=== PATIENT | female | born 1950 | race Asian ===

== ENCOUNTER 2020-12-07 22:19 | Emergency (ER) | payer OTHER, MEDICARE, SELFPAY ==
[2020-12-07 22:21] VITALS: BP 173/81; PULSE 110; RESP 17; TEMP 36.3; O2SAT 99
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
[2020-12-07 22:46] LABS: Abs Immature Grans 0.07 10^3/uL (0.0-0.06); Absolute Basophil Count 0.05 10^3/uL (0.0-0.2); Absolute Eosinophil Count 0.19 10^3/uL (0.0-0.7); Absolute Lymphocyte Count 3.31 10^3/uL (1.2-3.4); Absolute Monocyte Count 0.78 10^3/uL (0.1-0.8); Absolute Neutrophil Count 7.45 10^3/uL (1.2-6.7); Basophils % 0.4; Eosinophils % 1.6; HCT 40.7 % (36.0-46.0); HGB 14.2 g/dL (11.2-15.7); Immature Grans % 0.6; Lymphocytes % 27.9; MCH 30.5 pg (27.0-33.0); MCHC 34.9 % (32.0-36.0); MCV 87.3 fL (80-95); MPV 9.3 fL (8.0-11.0); Monocytes % 6.6; Neutrophils % 62.9; Nucleated RBC 0 %; Platelet Count 246 10^3/uL (130-400); RBC 4.66 10^6/uL (3.93-5.22); RDW 13.2 % (11.7-14.6); RDW-SD 41.7 fL; WBC 11.85 10^3/uL (4.4-10.8)
[2020-12-07 23:04] LABS: ALT 76 U/L (14-59); AST 70 U/L (15-37); Albumin 4.1 g/dL (3.4-5.0); Alkaline Phosphatase 127 U/L (46-116); Anion Gap 13.4 mmol/L (3-11); BUN 17 mg/dL (7-18); Bilirubin, Total 0.7 mg/dL (0.2-1.0); CO2 25.6 mmol/L (21.0-32.0); CREATININE 0.9 mg/dL (0.55-1.02); Calcium 9.5 mg/dL (8.5-10.1); Chloride 104 mmol/L (98-107); Glucose 140 mg/dL (74-106); Lipase 303 U/L (73-393); Potassium 3.6 mmol/L (3.5-5.1); Sodium 143 mmol/L (136-145); Total Protein 7.8 g/dL (6.4-8.2)
[2020-12-07 23:06] LABS: ETHANOL BLOOD < 3.0 mg/dL (<3)
[2020-12-07 23:12] LABS: Bilirubin Negative (Negative); Blood Trace-intact (Negative); Clarity Clear (Clear); Glucose Negative (Negative); Ketones Negative (Negative); Leukocyte Esterase Negative (Negative); Nitrite Negative (Negative); Specific Gravity 1.025 (1.005-1.025); Urobilinogen 0.2 EU/dL (Up TO 0.2)
[2020-12-07 23:16] LABS: *AMPHETAMINES SCREEN URINE Negative (Negative); *BARBITURATES SCREEN URINE Negative (Negative); *BENZODIAZEPINES SCREEN URINE Negative (Negative); Cannabinoids THC Negative (Negative); Cocaine Screen,Urine Negative (Negative); METHADONE URINE SCREEN Negative (Negative); OPIATES URINE SCREEN Negative (Negative)
[2020-12-07 23:17] LABS: Tricyclic Antidepressants Negative (Negative)
[2020-12-07 23:29] LABS: Epithelial Cells Rare HPF (Negative); RBC 0-2 HPF (0-2)
[2020-12-07 23:30] LABS: Bacteria Rare HPF (Negative); C & S Indicated? No; Casts Negative LPF (Negative); Crystals Negative HPF (Negative); Mucus Negative (Negative)
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
[2020-12-08] VITALS (7 sets, daily range): BP systolic 172–175; BP diastolic 75–82; PULSE 95–101; RESP 15–21; O2SAT 96–99
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
[2020-12-08] MEDS: Lactated Ringers 1,000 ML 1000 ML IV (00:05)
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
[2020-12-08] MEDS: Ketorolac 15 MG/ML VIAL (00:40)
--- NOTE | 2020-12-09 06:25 | NUR.NOTE ---
Nursing Note: Referral faxed to surgery for follow up regarding ED Visit.
== END 2020-12-08 01:40 | disposition home or self-care (01) ==
LOC: ER 12-08 02:35
PROVIDERS: Emergency Provider Emergency Medicine
DX: S06.0X0A Concussion without loss of consciousness, initial encounter (principal); S01.81XA Laceration without foreign body of other part of head, initial encounter; M54.2 Cervicalgia; V53.5XXA Driver of pick-up truck or van injured in collision with car, pick-up truck or van in traffic accident, initial encounter
CPT/HCPCS: 12011; 36415; 71250; 80053; 80307; 83690; 90471; 96361; 96374; 99284; 70450; 72125; 72128; 72131; 74176; 80320; 81003; 81015; 85025; J1885

== ENCOUNTER → 2020-12-12 10:59 | Outpatient (BNVA) | payer MEDICARE, SELFPAY | PROVIDERS: Visit Provider Physical Therapy Assistant | DX: R69 Illness, unspecified (principal) ==

== ENCOUNTER 2025-01-13 20:23 | Emergency (ER) | payer MEDICARE, SELFPAY ==
--- NOTE | 2025-01-13 20:15 | RT.EKG_ITS ---
APPROVED REPORT Exam: Resting ECG Reason for Exam: dizziness Patient Location: E HR:82 bpm ECG Measurements Heart Rate 82 AXIS MI 183 P 29 QRSd 77 QRS 42 QT 347 T 53 QTc 406 Conclusion Sinus rhythm, rate 82 No interval abnormalities Borderline ST elevation not meeting SETMI criteria inferolateral leads, no priors available for comparison
[2025-01-13 20:24] VITALS: BP 111/63; PULSE 84; RESP 16; TEMP 36.6; O2SAT 98
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
--- NOTE | 2025-01-13 20:55 | DI.RAD_ITS ---
Exam(s) XR CHEST 2V PA LATERAL EXAM: XR CHEST 2V PA LATERAL CLINICAL HISTORY: SOB, epigastric pain TECHNIQUE: 2D digital imaging was performed. Two views. COMPARISON: No exams were available for comparison FINDINGS: HEART: Normal size. Aorta: Tortuous. PULMONARY VASCULATURE: Normal. MEDIASTINUM: Unremarkable. LUNGS: Clear. PLEURAL SPACE: No pleural effusion or pneumothorax. BONE:Unremarkable for age. SOFT TISSUES: Unremarkable. IMPRESSION: No acute abnormality. The preliminary [facility] report was reviewed. DATA REPOSITORY: RADIATION DOSE DELIVERED:
[2025-01-13 20:58] LABS: Abs Immature Grans 0.14 10^3/uL (0.0-0.06); HCT 34.3 % (36.0-46.0); HGB 11.7 g/dL (11.2-15.7); Immature Grans % 1.3 %; MCH 32.3 pg (27.0-33.0); MCHC 34.1 % (32.0-36.0); MCV 95 fL (80-95); MPV 9.1 fL (8.0-11.0); Platelet Count 248 10^3/uL (130-400); RBC 3.62 10^6/uL (3.93-5.22); RDW 12.7 % (11.7-14.6); RDW-SD 43.8 fL; WBC 10.72 10^3/uL (4.4-10.8)
[2025-01-13] MEDS: Lactated Ringers 1,000 ML 1000 ML IV (21:01)
[2025-01-13] MEDS: Ondansetron 4 MG/2 ML VIAL IVP (21:01)
[2025-01-13 21:08] LABS: Lipase 210 U/L (<78)
--- NOTE | 2025-01-13 21:15 | DI.CT_ITS ---
Exam(s) CT ABDOMEN PELVIS WO EXAM: CT ABDOMEN PELVIS WO CLINICAL HISTORY: epigastric pain, +lipase. TECHNIQUE: Imaging Protocol: Axial computed tomography images with coronal and sagittal reformatted images were created and reviewed. Oral: / no COMPARISON: CT CT CHEST/ABD/PEL WO from 12/07/2020 FINDINGS: Lung Bases: No acute findings. Small hiatal hernia. Mild atelectasis. Liver: Normal density. Exophytic lesion from the left lobe is unchanged from 2020, consistent with a benign lesion. No follow-up recommended. No suspicious mass. Gallbladder and biliary tract: No radiodense calculus or biliary dilation. Pancreas: Normal density. No abnormal calcifications or inflammatory process. Spleen: Normal. Kidneys: Normal size, contour and axis. No radiodense stones. No obstructive uropathy. No suspicious masses seen. Adrenal glands: No masses seen. Lymph nodes: Within normal limits. Vasculature: Abdominal aorta non-dilated. Soft tissues: Bilateral breast implants. Bladder: No wall thickening. No mass or calculi. Bowel: No obstruction or bowel wall thickening. Appendix normal. Moderate quantity of stool. Peritoneal cavity: No ascites. No focal collection. No mesenteric inflammatory response. Reproductive organs: Hysterectomy Bones: Bilateral L5 spondylolysis and mild L5-S1 spondylolisthesis, unchanged. Degenerative disc changes at L5-S1. IMPRESSION: No acute abnormality in the abdomen or pelvis. The preliminary [facility] report was reviewed. RADIATION DOSE DELIVERED: Total DLP DATA REPOSITORY: All CT scans at this facility are submitted to the National Radiology Data Registry (NRDR) Dose Index Registry (DIR) with the [employer] (A[employer]). RADIATION OPTIMIZATION: All CT scans at this facility use at least one of these dose optimization techniques: automated exposure control; mA and/or kV adjustment per patient size (includes targeted exams where dose is matched to clinical indication); or iterative reconstruction.
[2025-01-13 21:16] LABS: ALT 19 U/L (14-59); AST 9 U/L (15-37); Albumin 3.4 g/dL (3.4-5.0); Alkaline Phosphatase 79 U/L (46-116); Anion Gap 6.5 mmol/L (3-11); BUN 45 mg/dL (7-18); Bilirubin, Total 0.4 mg/dL (0.2-1.0); CO2 26.5 mmol/L (21.0-32.0); Calcium 10.0 mg/dL (8.5-10.1); Chloride 100 mmol/L (98-107); Estimated GFR 24.27 (mL/min/1.73m2); Glucose 113 mg/dL (74-106); Magnesium 1.9 mg/dL (1.8-2.4); Potassium 5.0 mmol/L (3.5-5.1); Sodium 133 mmol/L (136-145); Total Protein 6.4 g/dL (6.4-8.2); Troponin I 5 ng/L (<or=51)
[2025-01-13 22:18] VITALS: BP 104/58; BP 125/61; BP 97/55; PULSE 69; PULSE 74; PULSE 84
[2025-01-13] MEDS: Lactated Ringers 500 ML IV (22:34)
[2025-01-13 22:35] LABS: Troponin I 6 ng/L (<or=51)
[2025-01-13 23:01] LABS: Glucose Negative (Negative)
--- NOTE | 2025-01-13 23:06 | DI.[facility]_ITS ---
PROCEDURE INFORMATION: Exam: CT Abdomen And Pelvis Without Contrast Exam date and time: 01/13/2025 9:25 PM Age: 74 years old Clinical indication: Other: Epigastric pain, +lipase TECHNIQUE: Imaging protocol: Computed tomography of the abdomen and pelvis without contrast. COMPARISON: CT CHEST/ABD/PEL WO 12/07/2020 11:20 PM FINDINGS: Lungs: Linear bibasilar opacities most consistent with subsegmental atelectasis. Diaphragm: There is a small hiatal hernia. Liver: The liver is unremarkable. 3 cm indeterminate low attenuating lesion adjacent to the left hepatic lobe, this could represent a exophytic liver lesion. Gallbladder and biliary ducts: No gallstones. Nondistended. No wall thickening. Pancreas: The pancreas is unremarkable. Spleen: No splenomegaly. No lesions. Adrenal glands: The adrenal glands are unremarkable. Kidneys and ureters: The kidneys are normal. Stomach and bowel: Moderate stool throughout the colon and rectum. Appendix: Normal appendix. Intraperitoneal space: Unremarkable. No free air. No significant fluid collection. Vasculature: There is mild diffuse atherosclerotic disease of the abdominal aorta. Lymph nodes: Unremarkable. No enlarged lymph nodes. Urinary bladder: No focal wall thickening of the urinary bladder. Reproductive: There has been a prior hysterectomy. Bones/joints: The lumbar spine demonstrates mild degenerative changes at multiple levels. No acute osseous abnormality. Soft tissues: There are bilateral intact breast implants. IMPRESSION: 3 cm indeterminate low attenuating lesion adjacent to the left hepatic lobe, this could represent a exophytic liver lesion. Recommend three-phase CT with liver protocol or MRI on a nonemergent basis if clinically warranted. No acute findings. Dictated and Authenticated by: Mildred Blandon MD. Orderin [facility] Prim[facility] Davidson MD
[2025-01-13 23:07] LABS: C & S Indicated? No; RBC Negative HPF (0-2); WBC 0-2 HPF (0-5)
--- NOTE | 2025-01-13 23:07 | DI.[facility]_ITS ---
PROCEDURE INFORMATION: Exam: XR Chest Exam date and time: 01/13/2025 9:42 PM Age: 74 years old Clinical indication: Other: SOB, epigastric pain TECHNIQUE: Imaging protocol: Radiologic exam of the chest. Views: 2 views. COMPARISON: CT CHEST/ABD/PEL WO 12/07/2020 11:20 PM FINDINGS: Lungs: Unremarkable. No consolidation. Pleural spaces: Unremarkable. No pleural effusion. No pneumothorax. Heart/Mediastinum: Unremarkable. No cardiomegaly. Bones/joints: Unremarkable. IMPRESSION: No acute findings. Dictated and Authenticated by: Mildred Blandon MD. Orderin [facility] Davidson MD
[2025-01-13 23:26] VITALS: BP 112/64; PULSE 72; RESP 18; TEMP 36.8; O2SAT 97
== END 2025-01-13 23:27 | disposition home or self-care (01) ==
PROVIDERS: Emergency Provider Emergency Medicine
DX: E86.0 Dehydration (principal); N18.9 Chronic kidney disease, unspecified; K85.90 Acute pancreatitis without necrosis or infection, unspecified; R42 Dizziness and giddiness
CPT/HCPCS: 80053; 83690; 93005; 96361; 96374; 99285; 71046; 74176; 81003; 81015; 83735; 84484; 85025; 93010; 99284; J2405

== ENCOUNTER 2025-01-22 09:37 | Emergency (ER) | payer MEDICARE, SELFPAY ==
[2025-01-22] VITALS (19 sets, daily range): BP systolic 119–180; BP diastolic 70–87; PULSE 71–84; RESP 11–19; TEMP 36.7–36.8; O2SAT 96–100
[2025-01-22 10:16] LABS: Glucose Negative (Negative)
--- NOTE | 2025-01-22 10:30 | DI.RAD_ITS ---
Exam(s) XR CHEST 2V PA LATERAL EXAM: XR CHEST 2V PA LATERAL CLINICAL HISTORY: Chest pain TECHNIQUE: 2D digital imaging was performed of the chest. Two images were obtained. PA and lateral views were obtained. COMPARISON: CR,XR XR CHEST 2V PA LATERAL from 01/13/2025 FINDINGS: MEDIASTINUM: Normal. HEART: Normal. PULMONARY VASCULATURE: Normal. LUNGS: Clear. PLEURAL SPACE: No pleural effusion or pneumothorax. BONE:Within normal limits for the patient's age. OTHER FINDINGS:Normal. IMPRESSION: No acute pulmonary findings. DATA REPOSITORY: RADIATION DOSE DELIVERED:
--- NOTE | 2025-01-22 10:30 | RT.EKG_ITS ---
APPROVED REPORT Exam: Resting ECG Reason for Exam: Chest pain Patient Location: E HR:78 bpm ECG Measurements Heart Rate 78 AXIS DE 215 P 39 QRSd 79 QRS 72 QT 382 T 34 QTc 435 Conclusion Sinus rhythm...normal P axis, V-rate 60- 99 Borderline prolonged DE interval...DE >212, V-rate 50- 90 No Occlusion GA
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
[2025-01-22 11:29] LABS: Abs Immature Grans 0.01 10^3/uL (0.0-0.06); HCT 30.2 % (36.0-46.0); HGB 10.4 g/dL (11.2-15.7); Immature Grans % 0.1 %; MCH 33.2 pg (27.0-33.0); MCHC 34.4 % (32.0-36.0); MCV 97 fL (80-95); MPV 9.3 fL (8.0-11.0); Platelet Count 173 10^3/uL (130-400); RBC 3.13 10^6/uL (3.93-5.22); RDW 12.5 % (11.7-14.6); RDW-SD 44.1 fL; WBC 7.46 10^3/uL (4.4-10.8)
[2025-01-22 12:12] LABS: D-Dimer 1309 ng/mlFEU (<500)
[2025-01-22 12:32] LABS: ALT 29 U/L (14-59); AST 21 U/L (15-37); Albumin 3.4 g/dL (3.4-5.0); Alkaline Phosphatase 58 U/L (46-116); Anion Gap 7.5 mmol/L (3-11); BUN 19 mg/dL (7-18); Bilirubin, Total 0.4 mg/dL (0.2-1.0); CO2 27.5 mmol/L (21.0-32.0); Calcium 8.5 mg/dL (8.5-10.1); Chloride 102 mmol/L (98-107); Estimated GFR 39.23 (mL/min/1.73m2); Glucose 100 mg/dL (74-106); Lipase 132 U/L (<78); Magnesium 2.7 mg/dL (1.8-2.4); Potassium 4.6 mmol/L (3.5-5.1); Sodium 137 mmol/L (136-145); Total Protein 6.7 g/dL (6.4-8.2); Troponin I 7 ng/L (<or=51)
[2025-01-22] MEDS: Dexamethasone 4 MG/ML VIAL 8 MG IVP (13:23)
[2025-01-22] MEDS: Normal Saline 500 ML IV (13:23)
--- NOTE | 2025-01-22 13:30 | DI.CT_ITS ---
Exam(s) CT CHEST PE CTA EXAM: CT CHEST PE CTA CLINICAL HISTORY: SOB pleuritic right flank pain. TECHNIQUE: Imaging Protocol: Axial CT angiography was performed with multi- slice acquisition and multi-planar and/or 3D reconstructions. Lung Computer Aided Detection (CAD) was utilized. CONTRAST MATERIAL: Intravenous: Omnipaque 350 contrast volume:60 mL COMPARISON: CT CT THORACIC LUMBAR SPINE WO from 12/07/[address] CHEST/ABD/PEL WO from 12/07/2020 CR XR CHEST 2V PA LATERAL from 01/22/2025 FINDINGS: Tracheobronchial tree: Patent where visualized. No bronchiectasis. Pulmonary parenchyma: No consolidation or dominant measurable mass. No architectural distortion. Atelectasis is seen in the lung bases. Pulmonary Arteries: No evidence of filling defect to suggest pulmonary emboli. Mediastinum and Hailma: No dominant adenopathy or fluid collection. The esophagus is unremarkable. Visualized thyroid gland: Unremarkable. Pleura: No effusion or pneumothorax. Heart: The heart is not dilated. Two vessel coronary artery calcification is present. No pericardial effusion. Aorta: Thoracic aorta non-dilated. Atherosclerotic calcification is present. Upper abdomen: Unremarkable. Soft tissues: There are bilateral breast implants. Bones: Within normal limits for the patient's age.There is a stable bone island in the T8 vertebral body. IMPRESSION: 1. There is no evidence of a pulmonary embolism or thoracic aortic aneurysm. 2. There is no acute pulmonary process. RADIATION DOSE DELIVERED: 78.57mGy.cm Total DLP DATA REPOSITORY: All CT scans at this facility are submitted to the National Radiology Data Registry (NRDR) Dose Index Registry (DIR) with the [employer] ([employer]). RADIATION OPTIMIZATION: All CT scans at this facility use at least one of these dose optimization techniques: automated exposure control; mA and/or kV adjustment per patient size (includes targeted exams where dose is matched to clinical indication); or iterative reconstruction.
[2025-01-22 14:08] LABS: Troponin I 6 ng/L (<or=51)
[2025-01-22] MEDS: Normal Saline - Diluent 50 ML VIAL IJ (14:34)
[2025-01-22] MEDS: Omnipaque 350 MG/ML 100 ML BTL IJ (14:34)
[2025-01-22] MEDS: Normal Saline Flush 10 ML SYR IVP (14:35)
== END 2025-01-22 15:51 | disposition home or self-care (01) ==
PROVIDERS: Emergency Provider Emergency Medicine
DX: R10.9 Unspecified abdominal pain (principal); R03.0 Elevated blood-pressure reading, without diagnosis of hypertension; D53.9 Nutritional anemia, unspecified; I25.10 Atherosclerotic heart disease of native coronary artery without angina pectoris
CPT/HCPCS: 71275; 80053; 83690; 93005; 96361; 96374; 99285; 71046; 81003; 83735; 84484; 85025; 85379; 93010; 99284; J1100; J3490